=== PATIENT | male | born 1985 | race Caucasian/White ===

== ENCOUNTER 2020-12-02 16:26 | Emergency (ER) | payer MEDICAID, OTHER ==
[~2020-12-02] VITALS: Ht 157.5 cm; Wt 73.0 kg
[~2020-12-02 16:26] MED LIST: HYDR50TA55 PO; TRAZ-251 PO
[2020-12-02] MEDS ORDERED: MUPI15CR11 TP (17:09)
[2020-12-02 17:17] VITALS: BP 127/87
== END 2020-12-02 17:19 | disposition home or self-care (01) ==
LOC: ER 17:03
DX: L73.9 Follicular disorder, unspecified (principal)
CPT/HCPCS: 99283

== ENCOUNTER 2023-12-31 17:17 | Emergency (ER) | payer OTHER ==
[~2023-12-31] VITALS: Ht 172.7 cm; Wt 79.4 kg
[~2023-12-31 17:17] MED LIST changes: +MUPI15CR11 TP
[2023-12-31 17:29] VITALS: O2SAT 98
[2023-12-31 18:50] VITALS: BP 127/88; PULSE 90; RESP 18; TEMP 36.55848; O2SAT 98
== END 2023-12-31 18:50 ==
LOC: ER 17:17
DX: M54.50 Low back pain, unspecified (principal); F41.9 Anxiety disorder, unspecified; F14.90 Cocaine use, unspecified, uncomplicated
CPT/HCPCS: 99281